=== PATIENT | female | born 1945 | race Caucasian/White ===

== ENCOUNTER 2016-10-21 16:33 | Inpatient (IN) | payer OTHER ==
[~2016-10-21] VITALS: Wt 113.4 kg
--- NOTE | ~2016-10-21 | PR ---
[place], [place] PROGRESS NOTE NAME: RAZ MATTHEWS [facility] #: [id number] UNIT #: [id number] ROOM: 316 DOCTOR: ARLEEN QUACH BIRTHDATE: [birth year] DOS: 10/26/2016 CHIEF COMPLAINT: "I had a good day." SUMMARY OF THE VISIT: She was in the dining room where she was eating her breakfast. Her affect is naturally flat, but she was alert and interactive, answered questions appropriately. The bandages that she had had on areas on her face have been taken off and she has numerous treatments from skin care consult from yesterday. She has no monica or hypomania. She has had no physically or verbally aggressive behaviors. She denies any audio or visual hallucination. She reports that she slept well. Her appetite is very good. PLAN: We will continue to titrate up on her Risperdal, increasing it to b.i.d. today in order to attempt to decrease the picking behaviors. We will also continue to adjust the Celexa as that is appropriate. We will continue to try to engage her individual and dao milieu and discharge her back to her long-term care facility when she is psychiatrically stable. Arleen Quach NP CM:BETHEL [phone] ARLEEN QUACH 10/28/16 0056 interface
--- NOTE | ~2016-10-21 | PR ---
[place], [place] PROGRESS NOTE NAME: RAZ MATTHEWS [facility] #: [id number] UNIT #: [id number] ROOM: 316 DOCTOR: ARLEEN QUACH BIRTHDATE: [birth year] DOS: 10/24/2016 CHIEF COMPLAINT: Good morning, "I slept well last night." SUMMARY OF THE VISIT: The patient was resting in bed. She was getting up for breakfast with standby assistance of the staff. She reported no picking incidence yesterday. Staff reports that she did have 2-3 episodes of picking on her arms. She reports that she slept well. She has had no monica or hypomania. She is quite pleasant. Her affect is appropriate. Mood is appropriate as well. PLAN: We will continue to wean down the Luvox while increasing the Celexa, also consider adding a dose of Risperdal to help decrease those picking episodes. We will continue to engage her in individual and dao milieu and discharge her to the least restrictive environment when she is psychiatrically stable. Arleen Quach NP CM:PNKADI 09 09 ARLEEN QUACH 10/26/16 0721 interface
--- NOTE | ~2016-10-21 | PR ---
[place], [place] PROGRESS NOTE [facility]: [id number] UNIT #: [id number] ROOM: 316 DOCTOR: LOBO ARCHIBALD MD BIRTHDATE: [birth year] DOS: CHIEF COMPLAINT: "Oh good morning, how are you. I am feeling better, thank you." SUMMARY OF THE VISIT: The patient was interviewed as she rested quietly in bed. She awoke easily as I entered her room and engaged readily in conversation. Outwardly, her scabs looked much better. She appears much more calm and less anxious and she endorses the same. She feels that she is getting better and notes much less itching and does not feel the compulsion to itch herself. Nurses report similar behavior and overall have noticed a significant improvement. She did report that she is sleeping better than upon admission and her appetite likewise has been good. MENTAL STATUS: She is alert and oriented to person, place, but not time. There is significant time gaps noted. Mood does seem to be strongly trending towards euthymia and affect is much more appropriate. There is no symptom suggestive of hypomania or monica. There are no auditory or visual hallucinations. No delusions, no paranoia. Short-term memory has gaps and she does have some processing difficulty. PLAN: I will maintain her current psychotropic regimen. I will augment the donepezil with Namenda 5 mg at bedtime with the plan to gradually titrate this upward as needed and as tolerated. LOBO ARCHIBALD MD CM:PNTRANS [phone] LOBO ARCHIBALD MD 10/31/16 1723 interface
--- NOTE | ~2016-10-21 | PR ---
[place], [place] PROGRESS NOTE [id number] UN[facility] #: [id number] ROOM: 316 DOCTOR: ARLEEN QUACH BIRTHDATE: [birth year] DOS: 10/28/2016 INTERVAL NOTE. CHIEF COMPLAINT: "I'm doing good." SUMMARY OF THE VISIT: She is seen in the dining room where she was sleeping in her chair after finishing breakfast. She still has multiple areas on her face, arms and body in various stages of healing patches. Band-Aids were noted to her face today. She, however, denies that she has been picking. She has had ongoing problems with her blood sugar levels fluctuating from a high of 300 last night down to 53 and requiring treatment for hypoglycemia. We have started her on Periactin and also on an antipsychotic to try to deal with her OCD and picking behavior. MENTAL STATUS EXAMINATION: She is alert and oriented. Affect is flat. Mood is appropriate. Her memory is intact. She is not having any audio or visual hallucinations. No monica or hypomania. PLAN: We will increase her Risperdal today to 0.5 three times a day in an attempt to decrease picking behavior. Continue to engage her in individual and dao milieu and discharge her to the least restrictive environment when she is psychiatrically stable. Arleen Quach NP CM:PNTRANS [phone] ARLEEN QUACH 10/28/16 2344 interface
--- NOTE | ~2016-10-21 | CON ---
[place], [place] REPORT OF CONSULTATION NAME: [facility]WS [facility] [id number] UNIT #: [id number] ROOM: 316 DOCTOR: ARLEEN QUACH BIRTHDATE: [birth year] DOS: INITIAL PSYCH CONSULT CHIEF COMPLAINT: Today, "I am picking because of my diabetes." HISTORY OF PRESENT ILLNESS: She is a 71-year-old female who came from [facility]. She has had a habit of compulsively picking her skin and eating the scabs to the point where she has just multiple open areas all over her body. She states that she feels like it is itching all of the time and she feels compulsion to then scratch. This morning she told me that she has had this forever. She is unable to give me any exact time of when it started or any kind of precipitating event that caused it. Prior to coming to this facility yesterday, she saw Dermatology and they recommended that she come to psych. She was involuntarily admitted to the [facility] after being medically cleared in the Emergency Room. She states that she has no family history of anyone with psych issues or any issues the same as what she is having now. She becomes anxious and then she picks and that makes her feel better. She does state that there is itching prior to her beginning to pick. PAST MEDICAL HISTORY: Includes anxiety disorder, asthma, dementia. She has a large hiatal hernia. She is hypertensive, insulin-dependent diabetes, rheumatoid arthritis. She is also an obese woman. MENTAL STATUS EXAMINATION: She is alert and oriented towards x 3. Mood is euthymic. Speech rate and pattern are regular. She is not showing any signs of monica, hypomania. No audio or visual hallucinations, delusions or paranoia. Her processing is good. Memory is good for person, place, time with a few short term memory gaps. DIAGNOSIS: Obsessive compulsive disorder versus frontotemporal dementia. She did have a CT scan of the head that showed some microvascular changes, otherwise it was normal. Her urine was positive for leukocyte esterase, bacteria and 3+ yeast and so she will be treated by medical for that. This morning, she was having some wheezing. Oxygen saturation was in the high 80s. She was given a breathing treatment, put on nasal oxygen and her pulse ox did come up after that. Also, of note, her lactic acid, CRP and myoglobin are elevated and the medical doctor is aware of those lab values and they will be coming up to see her later on today. PLAN: Since the Luvox does not seem to be effective, we will wean her off of the Luvox and start her on Celexa, beginning with the lowest dose 20 mg daily and then we will titrate it up from there. We will most likely add some medications to supplement her dementia meds as soon as we see how she reacts to these medication changes. We are going to have to proceed slowly so that we can tell which medication may be causing reaction if she does have a reaction. We will attempt to engage her in individual and dao milieu, consult with the wound care about the multiple scabs that she has on her body with the ultimate plan to return her to her long-term care facility whenever she is psychiatrically stable. [place], [place] REPORT OF CONSULTATION NAME: RAZ MATTHEWS UNIT #: [id number] ROOM: [facility] DOCTOR: ARLEEN QUACH BIRTHDATE: [birth year] Arleen Quach NP CM:CONSTR:REPORT OF CONSULTATION 1005 10/22/16 1738 interface
--- NOTE | ~2016-10-21 | PR ---
[place], [place] PROGRESS NOTE NAME: [id number] UNIT #: [id number] ROOM: 316 DOCTOR: VINOD NEVES BIRTHDATE: [birth year] DOS: 10/29/2016 CHIEF COMPLAINT: "Good morning." SUMMARY OF VISIT: The patient was assessed in the dining room where she was sleeping in a wheelchair but readily awoke when I said her name. She remembered me from [place] her wounds looked significantly better, so the hospitalist and doctors here have been managing her wounds very well. Her picking is less per nursing. She engaged readily in conversation, was pleasant, remember me from my visit with her last week. MENTAL STATUS: She is alert and oriented to person, place, approximate time. Mood trending towards euthymic. She smiled, engaged readily in conversation. Affect is appropriate. No overt signs of auditory or visual hallucinations, delusions, paranoia, monica or hypomania. PLAN: Labs, a little bit all over the place some anemia going on, no doubt because of these wounds. Chemistry: Her blood sugars have just been crazy high, last time it was checked on the was 474, prior to that it was in the high 500-600 range. Her Risperdal was increased yesterday by Ema to help with the picking, it seems to be effective. I am going to monitor. I do not want her overly sedated. She readily awoke, engaged in conversation. So, we will continue with the current medication regimen. I am going to see how she does over the next 24 hours and then we can go from there. ELENA NEVES CNP CM:PNKADI [id number] VINOD NEVES 10/30/16 0053 interface
--- NOTE | ~2016-10-21 | PR ---
[place], [place] PROGRESS NOTE [id number] UNIT #: [id number] ROOM: 316 DOCTOR: ARLEEN QUACH BIRTHDATE: [birth year] DOS: 10/23/2016 CHIEF COMPLAINT: "I'm doing good." SUMMARY OF THE VISIT: She was in the dining room where she had just finished her breakfast. She is alert and oriented x 3. Mood and affect are appropriate. The patient has had no picking episodes since she has been admitted to the unit and did state to me that she feels a decreased compulsion to pick. She was started on prednisone yesterday and her blood sugars have been seriously elevated and that is being addressed by Medical. She says that she slept well. She is eating well. She has had no monica or hypomania. She is not having any hallucinations, delusions or paranoia. PLAN: She was started yesterday on the Celexa. We will continue to titrate up on the Celexa. She had a very comprehensive medical workup, all of which was pretty much benign. We will continue to titrate up on the Celexa and supplement that as we need to try to get some control on this compulsive picking behaviors that she seems to have. We will continue to engage her in individual and dao milieu and discharge her to a least restrictive environment back to her long-term care facility when she is psychiatrically stable. Arleen Quach NP CM:BETHEL [phone] ARLEEN QUACH 10/24/16 0511 interface
--- NOTE | ~2016-10-21 | CON ---
[place], [place] REPORT OF CONSULTATION NAME: RAZ MATTHEWS [facility] #: [id number] UNIT #: [id number] ROOM: 316 DOCTOR: LINO TejedaFREEMAN BIRTHDATE: [birth year] DOS: 10/24/2016 WOUND CARE CONSULTATION CHIEF COMPLAINT: Skin picking. HISTORY OF PRESENT ILLNESS: This is a 71-year-old female who presented to the Emergency Room Department from [facility] for skin picking. She has a compulsive disorder of continuously wanting to scratch her skin to the point of bleeding. The patient states that she is itching all the time and feels a compulsion to constantly scratch these areas. She feels that she is unable to stop doing it. Due to this, the patient was admitted through the ER to the [facility] for complaints of this problem. Previous medical records that were looked through did state the patient had been seen by a feed crusher operator for these wounds, felt they were "neurotic excoriations" and it appears different topicals were tried. She has been seen by Dr. Washburn from Dermatology. There also reports that the patient eats the scabs after she picks them, so that has been reported in the medical record. PAST MEDICAL HISTORY: Significant for anxiety disorder, asthma, history of dementia, hiatal hernia, hypertension, insulin-dependent diabetes, migraine, rheumatoid arthritis. PAST SURGICAL HISTORY: She is status post cardiac catheterization, status post cataract surgery, cholecystectomy, cystostomy. She has had a history of foot surgery, hysterectomy, rotator cuff surgery, tonsillectomy, status post wrist surgery. SOCIAL HISTORY: She does not smoke or drink or use illicit drugs. She lives in a [facility]. FAMILY HISTORY: Significant for diabetes, hypertension. Pancreatic cancer in her father. Heart disease, diabetes, lung cancer in her mother. ALLERGIES: DULOXETINE, EPINEPHRINE, LATEX, LIDOCAINE, MEPILEX AND PREALBUMIN. MEDICATIONS: Celexa 40 mg p.o. at bedtime, Deltasone 20 mg p.o. daily, Levemir at bedtime, potassium 20 mEq daily, Lasix 20 daily, vitamin D 2000 units a day, Luvox 50 mg p.o. daily, which was discontinued. Protonix 40 mg p.o. daily, Humalog sliding scale, Luvox 100 mg p.o. at bedtime, citalopram 20 mg at bedtime, DuoNebs 3 mL q.i.d., doxycycline 100 p.o. b.i.d., losartan 50 mg p.o. b.i.d., hydroxychloroquine 200 mg p.o. daily, hydrochlorothiazide 25 mg p.o. daily, Zyrtec 10 mg p.o. daily, Lac-Hydrin t.i.d., Theragran 1 tablet p.o. daily, Calazime 4 grams b.i.d., hydroxyzine 50 mg p.o. t.i.d. for anxiety and itching. She is on Nystatin topical, Percocet 1 tab q.4h. p.r.n., milk of magnesia, Maalox 30 mL q.4h. p.r.n., and Aricept 10 mg p.o. at bedtime. REVIEW OF SYSTEMS: The patient is somewhat of a poor historian. She reports that she scratches herself because she is itching. She reports that she was feeling some shortness of breath and she feels that her breathing is now at [place], [place] REPORT OF CONSULTATION NAME: RAZ MATTHEWS UNIT #: [id number] ROOM: [facility] DOCTOR: FREEMAN HUYNH M.D. BIRTHDATE: [birth year] baseline. There are no reports of fevers or chills. She does not seem to report any pain with the wounds. The staff says that they have not noticed her picking at herself today, does not appear to be scratching at this time. Her appetite appears to be good. She denies any abdominal pain, nausea, vomiting or diarrhea. PHYSICAL EXAMINATION: VITAL SIGNS: Temperature is 98.4, pulse of 52, respirations 14, blood pressure is 101/66, pulse ox is 95% on room air. GENERAL: This physical exam, she is sitting in a wheelchair. No acute distress. She is morbidly obese. SKIN: She has multiple excoriations along her face, the biggest ones are on her bridge of her nose and forehead. HEENT: Her oropharynx is clear. Extraocular movements are intact. Sclerae are anicteric. NECK: There is no JVD. LUNGS: Clear to auscultation bilaterally, but decreased in the bases. CARDIOVASCULAR: S1, S2 regular rate and rhythm. ABDOMEN: Morbidly obese, soft, and nontender. EXTREMITIES: She has trace edema bilaterally. There is no calf tenderness. She has multiple wounds, the largest wounds are really located on her legs. There is one that is located in the left leg that is very thick, dry eschar-type wound that obviously appears that it is chronic. It does not appear to be acutely infected. There is no surrounding cellulitis. I would say that this probably measures around 4-5 inches in length x 2-3 inches in width. There are other several excoriated dry areas with thick eschars on the left leg noted as well as the right side where there is at least two very large wounds that are measuring about the same as on the left leg, but none of them do appear infected, they are not acutely tender and there is no purulence. She has several marked excoriations on her right arm that are also seemed to be in a healing state, but chronically open secondary to continued scratching. There are no signs of infection with these wounds either, these are also somewhat on the dry side. I do not see any rash. I do not see any dermatitis around the wound. There is no cellulitis. There is no evidence of an acute infection. LABORATORY DATA: Shows a white count of 10, hemoglobin is 10.4, hematocrit is 32.7, platelets are 246. Chem-7: Her sugars were markedly elevated up to 600-700. She had a chest x-ray, which showed cardiac enlargement, large hiatal hernia. Head CT scan, which showed no acute findings and a lung scan that was low probability of PE. She has a urine culture pending. 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 I would like to try the TheraHoney for her legs and see if we can cover on with a foam bandage that should help keep her from getting access to the wounds if we can keep them covered. In addition for her facial wounds and her arm wounds, we can try the colloidal oatmeal bath soap to see if that will help alleviate some of the pruritus that she feels is contributing to her wanting to scratch. So, I have written for that and to keep them moisturized with Aquaphor for now and if we can use either a large Tubigrip for some type of soft netting to keep the arm [place], [place] REPORT OF CONSULTATION NAME: RAZ MATTHEWS UNIT #: [id number] ROOM: [facility] DOCTOR: LINO Tejeda,FREEMAN BIRTHDATE: [birth year] protected or she can wear long sleeve clothing, that might help as well. So, we will try these topical dressings to see if they help the patient, but the patient will likely need followup with the feed crusher operator once stabilized and multiple medical problems including her COPD. Thank you for this consult. FREEMAN HUYNH MD CM:CONSTR:REPORT OF CONSULTATION 1819 10/25/16 1042 interface
--- NOTE | ~2016-10-21 | PR ---
[place], [place] PROGRESS NOTE [id number] #: [id number] ROOM: 316 DOCTOR: ARLEEN QUACH BIRTHDATE: [birth year] DOS: 10/27/2016 CHIEF COMPLAINT: "I just want to go home." SUMMARY OF THE VISIT: She was seen in the dining room. She is alert. Still has open areas in various stages of healing over her face and her arms. Staff reported that the picking was bad yesterday, but she was redirectable. She was started on Periactin yesterday to try to curb any itching, which is what she says is impetus to her picking. PLAN: Today we will increase her Periactin to 8 mg t.i.d. to try and help more with that picking behavior. We will try to engage her in individual and dao milieu and discharge her to the least restrictive environment when she is psychiatrically stable. Arleen Quach NP CM:PNKADI [id number] ARLEEN QUACH 10/28/16 0649 interface
--- NOTE | ~2016-10-21 | PR ---
[place], [place] PROGRESS NOTE NAME: RAZ MATTHEWS [facility] #: [id number] UNIT #: [id number] ROOM: 316 DOCTOR: ARLEEN QUACH BIRTHDATE: [birth year] DOS: 10/21/2016 CHIEF COMPLAINT: ____ morning, "I slept well last night." SUMMARY OF THE VISIT: The patient was resting in bed. She was getting up for breakfast with standby assistance of the staff. She reported no picking incidence yesterday. Staff reports that she did have 2-3 episodes of picking on her arms. She reports that she slept well. She has had no monica or hypomania. She is quite pleasant. Her affect is appropriate. Mood is appropriate as well. PLAN: We will continue to wean down the Luvox while increasing the Celexa, also consider adding a dose of Risperdal to help decrease those picking episodes. We will continue to engage her in individual and dao milieu and discharge her to the least restrictive environment when she is psychiatrically stable. Arleen Quach NP CM:PNTRANS 09 [phone] ARLEEN QUACH 10/25/16 0758 interface
--- NOTE | ~2016-10-21 | CON ---
[place], [place] REPORT OF CONSULTATION NAME: RAZ MATTHEWS UNIT #: [id number] ROOM: 316 DOCTOR: LINO Tejeda,FREEMAN BIRTHDATE: [birth year] DOS: 10/24/2016 ADDENDUM I just wanted to mention that the patient is allergic to Mepilex, so instead of Optifoam, I changed it to a bordered gauze. FREEMAN HUYNH MD CM:CONSTR:REPORT OF CONSULTATION 1826 10/25/16 1045 interface
--- NOTE | ~2016-10-21 | CON ---
[place], [place] REPORT OF CONSULTATION [id number] UNIT #: [id number] ROOM: 316 DOCTOR: DAISY OJEDA ED.D (SEBASTIEN) BIRTHDATE: [birth year] DOS: HISTORY OF PRESENT ILLNESS: The patient is a 71-year-old female referred by Dr. Rubalcava for competency evaluation. The patient is and has 3 children, 2 sons and 1 daughter. She formerly worked at [employer] in [place], [place]. This patient is presently residing at [facility] in [place], [place]. Her psychiatric history is pertinent for major depressive disorder, psychotic features. This patient denies any significant substance abuse issues. This patient was awake, alert and oriented in all 3 spheres, but appeared to be depressed. She denies any suicidal ideation or plan. She denies any past significant psychiatric history. She states that her son does help her to make some decisions (Jacob). She states that she believes she can make decisions about her health care and, in my opinion, I believe she is competent to make informed healthcare decisions. Recommendations in my opinion, this patient is competent to make informed healthcare decisions. DIAGNOSIS: Major depressive disorder with psychotic features. RECOMMENDATIONS: In my opinion, this patient is competent. Thank you very much for this consult. DAISY OJEDA ED.D CM:CONSTR:REPORT OF CONSULTATION 0828 10/25/16 2243 interface LOBO RUBALCAVA MD
--- NOTE | ~2016-10-21 | PR ---
[place], [place] PROGRESS NOTE NAME: RAZ MATTHEWS [facility] #: [id number] UNIT #: [id number] ROOM: 316 DOCTOR: VINOD NEVES BIRTHDATE: [birth year] DOS: 10/30/2016 CHIEF COMPLAINT: "Good morning." SUMMARY OF VISIT: The patient was assessed in her room, where she was sitting up in her wheelchair with oxygen on. She engaged readily in conversation. She initially looks depressed, but as soon as she acknowledges you she smiles, carries on a pleasant conversation. She does state that the itching and picking is much less and it does appear to be that way. The wounds on her face has significantly improved. She still has significant wounds on her arms and legs. MENTAL STATUS: She is alert and oriented to person, place. I do not know about time. Mood, I believe is trending towards euthymic. Affect is appropriate. No overt signs of auditory or visual hallucinations, delusions, paranoia, monica or hypomania. PLAN: Her CBC and CMP shows significant labs that are of. She had a little bit of low blood sugar today compared to that significantly high ones that she has been having, so we are getting the hospitalist involved to review all this. The Risperdal was increased the other day to help with the picking. I believe this has helped significantly. There is no sedation on board. I am going to keep the medications where they are right now since I want the labs to be the priority. Her white blood count is up. She is a little bit more anemic. Carbon dioxide is elevated. BUN and creatinine are elevated. Glucose was down. She had been running 500 in 600 and today it was 39, so we were having some swing going on and so we need to look at that. Her liver enzymes are elevated as is her magnesium and then her total protein and albumin is low, so I am going to focus on this today. From a psychiatric standpoint, stable and improving. She is saying that her skin is not itching and she is not picking as much so, we are making headway there. ELENA NEVES CNP CM:PNTRANS [id number] VINOD NEVES 10/31/16 0054 interface
--- NOTE | ~2016-10-21 | PR ---
[place], [place] PROGR[id number] UNIT #: [id number] ROOM: 316 DOCTOR: ARLEEN QUACH BIRTHDATE: [birth year] DOS: 10/25/2016 INTERVAL NOTE CHIEF COMPLAINT: "I feel good today." SUMMARY OF THE VISIT: The patient was seen in the dining room where she was seated under the table. She had consumed all of her breakfast. Her affect is very flat, but she is alert, pleasant and cooperative. She reports that she had a couple of episodes of picking yesterday, which the staff confirmed. She reports good sleep and appetite. Dr. Arguelles did come and do a competency evaluation on her and did find that she could make her own decisions. She was originally admitted involuntarily and she did sign in today voluntarily, so we can get her medications stabilize. PLAN: We will start her on dose of Risperdal today and titrate that up to try to decrease the picking behavior. We will discontinue the Luvox and continue to titrate up on the Celexa and seems to at least be in decreasing incidences of picking that she has been having. We will continue to try to engage her in individual and more milieu and discharge her to the least restrictive environment when she is psychiatrically stable. Arleen Quach NP CM:PNTRANS 32 ARLEEN QUACH 10/25/[id number] interface
[2016-10-21 16:53] VITALS: BP 149/56
[2016-10-21 17:17] LABS: BASO # 0.1 10*3/uL (0.0-0.1); BASO % 0.6 % (0.0-1.0); EOS # 0.2 10*3/uL (0.0-0.4); EOS % 2.1 % (1.0-4.0); HEMATOCRIT 36.7 % (37.0-47.0); HEMOGLOBIN 11.5 g/dl (12.0-16.0); LYMPH # 2.1 10*3/uL (1.3-4.4); LYMPH % 20.3 % (27.0-41.0); MEAN CELL VOLUME 85.5 fl (81.0-99.0); MEAN CORPUSCULAR HGB 26.8 pg (27.0-31.0); MEAN CORPUSCULAR HGB CONC 31.3 g/dl (33.0-37.0); MEAN PLATELET VOLUME 10.1 fl (9.6-12.3); MONO # 0.9 10*3/uL (0.1-1.0); MONO % 8.4 % (3.0-9.0); NEUT # 7.2 10*3/uL (2.3-7.9); NEUT % 68.3 % (47.0-73.0); PLATELET COUNT AUTOMATED 273 10*3/uL (130-400); RED BLOOD COUNT 4.29 10*6/uL (4.10-5.10); RED CELL DISTRI WIDTH 14.7 % (0-14.5); WHITE BLOOD COUNT 10.5 10*3/uL (4.8-10.8)
[2016-10-21 17:25] LABS: PROTHROMBIN TIME 10.2 SECONDS (9.0-12.4)
[2016-10-21 17:27] LABS: BILIRUBIN NEGATIVE (NEGATIVE); BLOOD NEGATIVE (NEGATIVE); CLARITY CLOUDY (CLEAR); COLOR YELLOW (YELLOW); GLUCOSE NEGATIVE (NEGATIVE); KETONE NEGATIVE (NEGATIVE); LEUKO ESTERASE 2+ (NEGATIVE); NITRITE NEGATIVE (NEGATIVE); PROTEIN 1+ (NEGATIVE); UROBILINOGEN 0.2 E.U./dl (0.2-1.0)
[2016-10-21 17:32] LABS: ALBUMIN 3.1 gm/dl (3.1-4.5); ALKALINE PHOSPHATASE 96 U/L (45-117); BILIRUBIN, TOTAL 0.2 mg/dl (0.2-1.0); BUN 13 mg/dl (7-24); C-REACTIVE PROTEIN 4.19 MG/DL (0-0.3); CARBON DIOXIDE 30 mmol/L (21-32); CHLORIDE 100 mmol/L (98-107); CKMB 1.4 ng/ml (0.5-3.6); CPK 109 U/L (26-192); EST GLOM FILT AFRICAN AMERICAN > 60 ml/min; GLUCOSE 93 mg/dL (65-99); MAGNESIUM 2.2 mg/dL (1.5-2.1); POTASSIUM 3.9 mmol/L (3.5-5.1); SGOT/AST 21 IU/L (3-35); SGPT/ALT 9 U/L (12-78); SODIUM 142 mmol/L (136-145); TOTAL PROTEIN 7.9 gm/dL (6.4-8.2); TROPONIN I 0.033 ng/ml (<0.045)
[2016-10-21 17:44] LABS: WBC 41-50 wbc/hpf (0-5)
[2016-10-21 17:45] LABS: BACTERIA 1+; URINE REFLEX COMMENT YES (NO); YEAST 3+
[2016-10-21 18:10] VITALS: BP 156/68
[2016-10-21 19:14] LABS: LA>2 REFLEX 2 HR DRAW NOW
[2016-10-21 19:28] VITALS: BP 160/84
[2016-10-21] MEDS ORDERED: NOVOLOG FLEX100 U/ML SC ×2 (20:16→20:21)
[2016-10-21] MEDS ORDERED: MAPAP325 MG PO (20:16)
[2016-10-21] MEDS ORDERED: GENTLE LAXATIVE10 MG RC (20:17)
[2016-10-21] MEDS ORDERED: GOOD SENSE PAI500 M1 PO (20:17)
[2016-10-21] MEDS ORDERED: '''ZYRTEC PO (20:17)
[2016-10-21] MEDS ORDERED: DAILY VITAMIN1 EAC3 PO (20:18)
[2016-10-21] MEDS ORDERED: DONEPEZIL HCL10 MG PO (20:18)
[2016-10-21] MEDS ORDERED: HYDROCHLOROTHIA25 M1 PO (20:18)
[2016-10-21] MEDS ORDERED: Lac-Hydrin 12%340 GM TP (20:19)
[2016-10-21] MEDS ORDERED: HYDROXYCHLOROQ200 M1 PO (20:19)
[2016-10-21] MEDS ORDERED: COZAAR50 M1 PO (20:20)
[2016-10-21] MEDS ORDERED: LANTUS SOLOS100 U/M1 SC (20:20)
[2016-10-21] MEDS ORDERED: FLUVOXAMINE50 MG PO (20:20)
[2016-10-21] MEDS ORDERED: HIPREX1 GM PO (20:21)
[2016-10-21] MEDS ORDERED: OXYCODONE AND A1 TA4 PO ×2 (20:22→20:23)
[2016-10-21] MEDS ORDERED: NYSTOP100000 U/G T (20:22)
[2016-10-21] MEDS ORDERED: SMZ TMP 800 MG PO (20:23)
[2016-10-21] MEDS ORDERED: TRAMADOL HCL50 MG PO (20:24)
[2016-10-21] MEDS ORDERED: VISTARIL25 M2 PO (20:24)
[2016-10-21 21:23] VITALS: BP 149/56
[2016-10-21] MEDS ORDERED: FLUVOXAMINE MA100 M2 PO ×4 (22:21→22:32)
[2016-10-22 07:17] LABS: BASO # 0.1 10*3/uL (0.0-0.1); BASO % 0.7 % (0.0-1.0); EOS # 0.3 10*3/uL (0.0-0.4); EOS % 3.4 % (1.0-4.0); HEMATOCRIT 34.6 % (37.0-47.0); HEMOGLOBIN 10.7 g/dl (12.0-16.0); LYMPH # 1.9 10*3/uL (1.3-4.4); LYMPH % 21.5 % (27.0-41.0); MEAN CELL VOLUME 85.6 fl (81.0-99.0); MEAN CORPUSCULAR HGB 26.5 pg (27.0-31.0); MEAN CORPUSCULAR HGB CONC 30.9 g/dl (33.0-37.0); MEAN PLATELET VOLUME 9.6 fl (9.6-12.3); MONO # 0.7 10*3/uL (0.1-1.0); MONO % 8.6 % (3.0-9.0); NEUT # 5.7 10*3/uL (2.3-7.9); NEUT % 65.6 % (47.0-73.0); PLATELET COUNT AUTOMATED 254 10*3/uL (130-400); RED BLOOD COUNT 4.04 10*6/uL (4.10-5.10); RED CELL DISTRI WIDTH 14.7 % (0-14.5); WHITE BLOOD COUNT 8.6 10*3/uL (4.8-10.8)
[2016-10-22 07:44] LABS: BUN 14 mg/dl (7-24); CARBON DIOXIDE 33 mmol/L (21-32); CHLORIDE 100 mmol/L (98-107); EST GLOM FILT AFRICAN AMERICAN > 60 ml/min; GLUCOSE 151 mg/dL (65-99); HEMOGLOBIN A1c 8.5 % (4.8-5.6); POTASSIUM 3.7 mmol/L (3.5-5.1); SODIUM 142 mmol/L (136-145)
[2016-10-22 08:00] VITALS: BP 152/57
[2016-10-22 08:44] LABS: FOLIC ACID 21.67 ng/mL (>5.38); VITAMIN D, 25-HYDROXY 25.1 ng/mL (30-100)
[2016-10-22 20:34] VITALS: BP 135/71
[2016-10-23 06:38] LABS: BASO % 0.1 % (0.0-1.0); HEMATOCRIT 32.7 % (37.0-47.0); HEMOGLOBIN 10.4 g/dl (12.0-16.0); LYMPH # 1.3 10*3/uL (1.3-4.4); LYMPH % 12.1 % (27.0-41.0); MEAN CELL VOLUME 85.6 fl (81.0-99.0); MEAN CORPUSCULAR HGB 27.2 pg (27.0-31.0); MEAN CORPUSCULAR HGB CONC 31.8 g/dl (33.0-37.0); MEAN PLATELET VOLUME 9.8 fl (9.6-12.3); MONO # 0.9 10*3/uL (0.1-1.0); MONO % 8.2 % (3.0-9.0); NEUT # 8.2 10*3/uL (2.3-7.9); NEUT % 79.2 % (47.0-73.0); PLATELET COUNT AUTOMATED 246 10*3/uL (130-400); RED BLOOD COUNT 3.82 10*6/uL (4.10-5.10); RED CELL DISTRI WIDTH 14.6 % (0-14.5); WHITE BLOOD COUNT 10.3 10*3/uL (4.8-10.8)
[2016-10-23 08:10] VITALS: BP 116/51
[2016-10-23 20:18] VITALS: BP 111/86
[2016-10-24 09:56] VITALS: BP 101/66
[2016-10-24 21:54] VITALS: BP 135/52
[2016-10-25 08:30] VITALS: BP 115/97
[2016-10-25 20:19] VITALS: BP 124/80
[2016-10-26 08:34] VITALS: BP 148/66
[2016-10-26 19:57] VITALS: BP 125/58
[2016-10-27 07:46] VITALS: BP 134/87
[2016-10-27 20:11] VITALS: BP 102/68
[2016-10-27 21:50] VITALS: BP 108/64
[2016-10-28 07:00] VITALS: BP 124/85
[2016-10-28 20:38] VITALS: BP 102/68; BP 113/66
[2016-10-29 07:36] VITALS: BP 141/87
[2016-10-29 20:07] VITALS: BP 140/54
[2016-10-30 06:49] LABS: BASO % 0.2 % (0.0-1.0); EOS # 0.2 10*3/uL (0.0-0.4); EOS % 1.3 % (1.0-4.0); HEMATOCRIT 31.5 % (37.0-47.0); IG # 0.1 10*3/uL (0.0-0.1); LYMPH # 3.7 10*3/uL (1.3-4.4); MEAN CELL VOLUME 84.2 fl (81.0-99.0); MEAN CORPUSCULAR HGB 26.7 pg (27.0-31.0); MEAN CORPUSCULAR HGB CONC 31.7 g/dl (33.0-37.0); MEAN PLATELET VOLUME 10.4 fl (9.6-12.3); MONO # 1.1 10*3/uL (0.1-1.0); MONO % 8.6 % (3.0-9.0); NEUT # 8.1 10*3/uL (2.3-7.9); NEUT % 61.5 % (47.0-73.0); PLATELET COUNT AUTOMATED 243 10*3/uL (130-400); RED BLOOD COUNT 3.74 10*6/uL (4.10-5.10); RED CELL DISTRI WIDTH 14.7 % (0-14.5); WHITE BLOOD COUNT 13.2 10*3/uL (4.8-10.8)
[2016-10-30 07:19] LABS: ALBUMIN 2.4 gm/dl (3.1-4.5); BILIRUBIN, TOTAL 0.3 mg/dl (0.2-1.0); MAGNESIUM 2.4 mg/dL (1.5-2.1); POTASSIUM 4.4 mmol/L (3.5-5.1); TOTAL PROTEIN 6.1 gm/dL (6.4-8.2)
[2016-10-30 08:13] VITALS: BP 122/84
[2016-10-30 20:38] VITALS: BP 130/90
[2016-10-31 08:00] VITALS: BP 145/110
[2016-10-31 12:57] VITALS: BP 128/82
[2016-10-31 19:52] VITALS: BP 124/52
[2016-11-01] MEDS ORDERED: D-1000 185 MG-11 TAB PO (07:51)
[2016-11-01] MEDS ORDERED: NAMENDA-5 PO (07:51)
[2016-11-01] MEDS ORDERED: ARICEPT10 M1 PO (07:51)
[2016-11-01] MEDS ORDERED: RISPERIDONE0.5 MG PO (07:51)
[2016-11-01] MEDS ORDERED: CITALOPRAM HYDR20 MG PO (07:51)
[2016-11-01] MEDS ORDERED: ATARAX,VISTARIL50 MG PO (07:51)
[2016-11-01 08:00] VITALS: BP 121/80
[2016-11-01] MEDS ORDERED: KLOR-CON M2020 ME1 PO (14:40)
[2016-11-01] MEDS ORDERED: LEVEMIR FLEX100 U/ML SC (14:40)
[2016-11-01] MEDS ORDERED: FUROSEMIDE20 M1 PO (14:40)
== END 2016-11-01 17:38 | disposition other institution (70) | DRG 885 ==
LOC: EDSTATUS 16:33 → ED 16:34 → 3N 21:17
PROVIDERS: Emergency Medicine; Internal Medicine Hospice and Palliative Medicine; Registered Nurse
DX: F32.3 Major depressive disorder, single episode, severe with psychotic features (principal); F03.91 Unspecified dementia, unspecified severity, with behavioral disturbance; E11.622 Type 2 diabetes mellitus with other skin ulcer; N39.0 Urinary tract infection, site not specified; L97.929 Non-pressure chronic ulcer of unspecified part of left lower leg with unspecified severity; L97.919 Non-pressure chronic ulcer of unspecified part of right lower leg with unspecified severity; I10 Essential (primary) hypertension; F41.9 Anxiety disorder, unspecified; J45.909 Unspecified asthma, uncomplicated; G43.909 Migraine, unspecified, not intractable, without status migrainosus; K44.9 Diaphragmatic hernia without obstruction or gangrene; M06.9 Rheumatoid arthritis, unspecified; F42.4 Excoriation (skin-picking) disorder; J20.9 Acute bronchitis, unspecified; L29.9 Pruritus, unspecified; F42.9 Obsessive-compulsive disorder, unspecified; L98.499 Non-pressure chronic ulcer of skin of other sites with unspecified severity; E66.9 Obesity, unspecified; Z79.4 Long term (current) use of insulin; Z98.49 Cataract extraction status, unspecified eye; Z90.710 Acquired absence of both cervix and uterus; Z90.49 Acquired absence of other specified parts of digestive tract; Z91.040 Latex allergy status; Z88.8 Allergy status to other drugs, medicaments and biological substances; Z88.4 Allergy status to anesthetic agent; Z82.49 Family history of ischemic heart disease and other diseases of the circulatory system; Z80.1 Family history of malignant neoplasm of trachea, bronchus and lung; Z80.8 Family history of malignant neoplasm of other organs or systems; Z83.3 Family history of diabetes mellitus; Z79.899 Other long term (current) drug therapy; Z93.50 Unspecified cystostomy status